=== PATIENT | male | born 1975 | race Caucasian/White ===

== ENCOUNTER 2017-07-30 16:04 | Emergency (ER) | payer OTHER ==
[~2017-07-30] VITALS: Ht 180.3 cm; Wt 74.8 kg
--- NOTE | ~2017-07-30 | EKG ---
[address] [place] [address] ELECTROCARDIOGRAM REPORT Name: JESSIKA MCCARTHY Room #: REG Aroldo#: [id number] Admission: 07/30/17 Attend Phys: Discharge: Date of : 71 Report #: [id number] THIS REPORT FOR: //name// [facility] ED Test Date: 2017-07-30 Test Time: 16:11:18 Pat Name: JESSIKA MCCARTHY Department: Room: Gender: M Time Study Technologist: JEAN : 1975 Requested By: Padmini Hernandez Order Number: [id number] MD: Flaco Nixon Measurements Intervals [place] Rate: 57 P: 26 MN: 158 QRS: 70 QRSD: 91 T: 52 QT: 399 QTc: 389 Interpretive Statements Sinus rhythm RSR' in V1 or V2, probably normal variant Probable left ventricular hypertrophy ST elev, probable normal early repol pattern No previous ECG available for comparison Electronically Signed On 07-30-2017 18:07:41 [employer] by Flaco Nixon [email or web address] <ELECTRONICALLY SIGNED> By: Flaco Nixon MD 07/30/17 1807 1610 10 Flaco Nixon MD /NIR
[2017-07-30 16:38] LABS: ABSOLUTE NEUTROPHILS 5.6 thou/uL (1.4-8.2); BASOPHILS 1.1 % (0.0-2.0); EOSINOPHILS 1.8 % (0.0-3.0); HEMATOCRIT 45.1 % (42.0-52.0); HEMOGLOBIN 15.6 gm/dL (14.0-18.0); LYMPHOCYTES 21.2 % (24.0-44.0); MCHC 34.5 g/dL (28.0-37.0); MCV 92.8 fL (80.0-100.0); MONOCYTES 7.7 % (1.0-8.0); PLATELET COUNT 232 thou/uL (150-400); POLYS 68.2 % (36.0-66.0); RBC 4.86 mil/uL (4.50-6.00); RDW 13.1 % (10.5-14.5); WBC 8.1 thou/uL (4.0-11.0)
[2017-07-30 16:48] LABS: ANION GAP 8 mmol/L (7-16); BUN 11 mg/dL (7-18); CALCIUM 9.1 mg/dL (8.5-10.1); CHLORIDE 106 mmol/L (98-107); CO2 29 mmol/L (21-32); CREATININE 0.9 mg/dL (0.7-1.3); GLUCOSE 100 mg/dL (74-106); POTASSIUM 4.8 mmol/L (3.5-5.1); SODIUM 143 mmol/L (136-145)
[2017-07-30 16:57] LABS: TROPONIN-I < 0.04 ng/mL (<0.06)
== END 2017-07-30 19:06 | disposition home or self-care (01) ==
LOC: ER 16:04
PROVIDERS: Nurse Practitioner Family
DX: R07.9 Chest pain, unspecified (principal); F17.210 Nicotine dependence, cigarettes, uncomplicated; Z90.89 Acquired absence of other organs; Z88.5 Allergy status to narcotic agent